=== PATIENT | male | born 1975 | race Hispanic/Latino ===

== ENCOUNTER 2024-10-07 09:14 | Emergency (ER) | payer MEDICARE ==
[~2024-10-07] VITALS: Ht 185.4 cm; Wt 108.9 kg
[2024-10-07] MEDS ORDERED: MUCINEX600 MG PO (09:53)
[2024-10-07] MEDS ORDERED: ondansetron HCL 4 MG/2 ML VIAL ONE (09:53)
[2024-10-07] MEDS ORDERED: ACETAMINOPHEN500 MG PO (09:54)
[2024-10-07] MEDS ORDERED: ondansetron HCL 4 MG/2 ML VIAL IV ONE (10:00)
[2024-10-07] MEDS ORDERED: SODIUM CHLORIDE 0.9% 1,000 ML IV PRN (10:00)
[2024-10-07 10:20] LABS: BASOPHILS 0.5 % (0-2); EOSINOPHILS 0.2 % (0-6); HEMOGLOBIN 16.1 g/dL (12.0-18.0); MCH 31.2 (27-36); MCHC 34.3 g/dl (30-36); MCV 90.8 fl (81-99); MONOCYTES 9.6 % (0-12); NEUTROPHILS 75.7 % (39-80); PLATELET COUNT 203 K/uL (140-440); RBC 5.17 M/ul (4.3-5.7); RDW 13.8 (10.5-15.0)
[2024-10-07 10:34] LABS: ALBUMIN 4.3 g/dL (3.4-5.0); ALBUMIN/GLOBULIN RATIO 0.91 (1.1-2.4); ANION GAP 13.4 (7-21); BILIRUBIN, TOTAL 0.5 ng/dL (0.2-1.0); BUN/CREATININE RATIO 9.25 (6.0-28.6); CALCIUM 9.1 mg/dL (8.5-10.1); CREATININE, SERUM 1.62 mg/dL (0.70-1.30); POTASSIUM 3.4 mmol/L (3.5-5.1)
[2024-10-07] MEDS ORDERED: ONDANSETRON ODT4 MG PO (11:06)
[2024-10-07 11:16] VITALS: BP 127/75
== END 2024-10-07 11:16 | disposition home or self-care (01) ==
LOC: ED 09:14
PROVIDERS: Emergency Medicine
DX: K52.9 Noninfective gastroenteritis and colitis, unspecified (principal)
CPT/HCPCS: 36415; 80053; 83690; 85025; 96361; 96374; 99284-25; J2405; J7030

== ENCOUNTER 2024-10-14 09:37 | Emergency (ER) | payer OTHER ==
[~2024-10-14] VITALS: Ht 185.4 cm; Wt 108.4 kg
[~2024-10-14 09:37] MED LIST: ACETAMINOPHEN500 MG PO; MUCINEX600 MG PO; ONDANSETRON ODT4 MG PO
--- OUTSIDE RECORDS SUMMARY | 2024-10-14 09:43 | XMS ---
PreManage Notification: MARLEY CARMEN Security [employer] Events No recent Security Events currently on file CRITERIA MET - [facility] - 2 Visits in 30 Days CARE PROVIDERS There are no care providers on record at this time. Lainey has no Care Guidelines for this patient. [facility] (12 MO.) [facility] NOTE: Visits indicate total known visits. ED/C VISIT TRACKING (12 MO.) [facility] 09[facility] COMPLAINT: - COUGHING UP BLOOD 10/07/2024 09:17 [facility] TYPE: Emergency COMPLAINT: - FLU SYMPTOMS DIAGNOSES: - Diarrhea, unspecified - Noninfective gastroenteritis and colitis, unspecified INPATIENT VISIT TRACKING (12 MO.) No inpatient visits to display in this time frame [email or web address]
[2024-10-14] MEDS ORDERED: ZITHROMAX250 MG PO (11:06)
[2024-10-14 11:33] VITALS: BP 141/89
== END 2024-10-14 11:34 | disposition home or self-care (01) ==
LOC: ED 09:37
DX: J40 Bronchitis, not specified as acute or chronic (principal); R04.2 Hemoptysis
CPT/HCPCS: 71046; 99284-25